=== PATIENT | female | born 1960 | race Caucasian/White ===

== ENCOUNTER → 2018-06-10 10:44 | Outpatient (CLI) | payer OTHER, SELFPAY ==
--- NOTE | 2018-06-10 11:15 | PET_ITS ---
EXAMINATION: FDG PET CT INDICATIONS: A 57-year-old female with reported history of lymphoma presenting for apparent initial staging examination. COMPARISON EXAMINATION: CT of the abdomen and pelvis report dated 05/20/18, CT of the chest report dated 05/17/18. INDEX LESION SIZE LUGANO SCORE SUV INTERPRETATION Left supraclavicular region (n = 1) 12.8 mm x 28.4 mm (frame 236) 5 6.1 Fulfills quantitative criteria for viable neoplasm TECHNIQUE: Following the intravenous administration of 15.8 mCi of F-18 deoxyglucose via the left antecubital fossa, multiplanar image acquisitions of the neck, chest, abdomen and pelvis to level of mid thigh, obtained at one hour post radiopharmaceutical administration contemporaneously interpreted with the current CT of the neck, chest, abdomen and pelvis to level of mid thigh, dated 06/10/[address] of the abdomen and pelvis report dated 05/20/18, CT of the chest report dated 05/17/18 reveal: SERUM GLUCOSE LEVEL: 96 mg/dl. HEIGHT: 60 inches. WEIGHT: 180 lbs. FINDINGS: 1. Asymmetric increased FDG concentration is defined in the left supraclavicular region. The calculated maximum standard uptake value is 6.1. The Lugano-Deauville score is 5, if applicable. The maximal axial diameter of the corresponding hypermetabolic soft tissue density on review of CT of the chest dated 06/10/18 is 12.8 mm (transverse) x 28.4 mm (AP). 2. Normal physiologic distribution of the radiopharmaceutical is apparent in the hepatic (4.7) and splenic parenchyma, both renal units, bladder and visualized intestinal tract. There is uniform distribution of the radiopharmaceutical concentration defined in the visualized cerebellar hemispheres and cerebral cortical structures.? Diffuse intestinal tract activity is noted throughout all four quadrants of the abdominal-pelvic retroperitoneum, mesentery consistent with normal physiologic distribution of the radiopharmaceutical. Pertinent CT findings are as follows. CHEST: Surgical clips are identified in the right axillary region. Right and visualized left axillary soft tissue densities, the majority of which demonstrate fatty hilus formation are non-glucose avid. There are no parenchymal densities-nodules defined in the right and left hemithorax demonstrating discernible, quantitatively significant increased glucose metabolism. ABDOMEN AND PELVIS: Bilateral subcentimeter inguinal soft tissue densities are ametabolic. Postsurgical changes are defined in the lower pelvis with apparent absence of the uterus commensurate with previous hysterectomy. Calcified granuloma formation is noted within the splenic parenchyma. Subcentimeter retroperitoneal soft tissue reveals no evidence of increased glucose metabolism. SKELETAL: Degenerative changes defined in the cervical, thoracic and lumbar spine demonstrate no evidence for glucose hypermetabolism. PET/PET/CT Tumor Base -Thigh Init IMPRESSION: 1. ABNORMAL EXAMINATION INDICATIVE OF MALIGNANT-VIABLE NEOPLASM. 2. Asymmetric enhanced FDG uptake noted in the left supraclavicular region fulfills quantitative criteria for viable neoplasm. Electronic Signature Konstantin Caceres D.O. Electronically Signed: Konstantin Caceres DO at 23:42 EDT Tel , Service support ,
== END ==
PROVIDERS: Family Provider Internal Medicine; PCP Internal Medicine; Referring Provider Internal Medicine Hematology & Oncology; Visit Provider Internal Medicine Hematology & Oncology
DX: C85.99 Non-Hodgkin lymphoma, unspecified, extranodal and solid organ sites (principal)
CPT/HCPCS: 78815; A9552

== ENCOUNTER 2021-07-14 18:22 | Emergency (ER) | payer BC, SELFPAY ==
[2021-07-14 18:24] VITALS: BP 131/87; PULSE 134; RESP 18; TEMP 35.6; O2SAT 96; BMI 35.2
[2021-07-14 18:38] VITALS: PULSE 103; RESP 18; O2SAT 96
--- NOTE | 2021-07-14 19:34 | EDS_ITS ---
HPI History of Present Illness Chief Complaint: Shortness of Breath Informant: patient Onset/Context/Timing Onset: Days (3) Timing: Continuous Quality: Positive for Dyspnea on exertion Worsened by: Exertion Relieved by: - (Sleep) Associated Symptoms cough, rhinorrhea, ear pain, sore throat, subjective, chills, sweats and green sputum Chest Pain: Positive for None Narrative Narrative: Patient presents with cough, shortness of breath, and headache that has been getting worse over the last 3 days. Patient states it began rather suddenly. Patient states her breathing is worse with any exertion. Patient states it is better whenever she sleeps. Patient states she is coughing up some green sputum. Patient admits to some sweats and chills but did not take her temperature. Patient admits to some rhinorrhea, sore throat, bilateral ear pain. Patient denies any chest pain. Patient does work in an extended care facility. [facility] Medical History (Updated 07/14/21 @ 21:[address] Raymon Rossi DO) Asthma Fibromyalgia Hx of supraventricular tachycardia Non-Hodgkin's lymphoma Osteoarthritis Restless leg syndrome Home Medications dicyclomine 20 mg PO TIDAC PRN #10 capsule 03/22/16 [Rx Last Taken Unknown] ondansetron 4 mg PO Q8H PRN PRN #10 tab 03/22/16 [Rx Last Taken Unknown] Allergy/AdvReac Type Severity Reaction Status Date / Time cephalexin [From Keflex] AdvReac Nausea/Vom/ Verified 07/14/21 18:24 Diarrhea Surgical History (Updated 07/14/21 @ 19:[address] Raymon Rossi DO) H/O section Social History Smoking Status: Never smoker ROS ROS ED Constitutional Constitutional ED: Reports chills and sweats; Denies fever(s) Eyes Eyes: Reports blurry vision; Denies diplopia ENT ENT ED: Reports ear pain bilateral, rhinorrhea and sore throat Cardiovascular Cardiovascular: Reports palpitations; Denies chest pain Respiratory/Chest Respiratory/Chest: Reports cough and dyspnea Gastrointestinal Gastrointestinal: Reports nausea and vomiting Genitourinary Genitourinary ED: Denies dysuria or hematuria Musculoskeletal Musculoskeletal: Reports neck pain; Denies back pain Integumentary Denies abscess or rash Neurologic Neurologic: Reports headache(s); Denies weakness Allergic/Immunologic Allergic/Immunologic ED: Denies mouth swelling or urticaria EXAM Physical Exam Const Vital Signs: 07/14/21 18:24 07/14/21 18:38 07/14/21 20:05 Temperature 96.1 F L Temperature Source Temporal Pulse Rate 134 H 103 H 110 H Respiratory Rate 18 18 18 Blood Pressure 131/87 H Blood Pressure Mean 101 Pulse Ox 96 96 Oxygen Delivery Method Room Air Room Air 07/14/21 21:17 Temperature Temperature Source Pulse Rate 103 H Respiratory Rate 16 Blood Pressure 128/73 H Blood Pressure Mean 91 Pulse Ox 94 Oxygen Delivery Method Room Air Positive well nourished and well developed General Appearance ED: well developed and NAD HEENT Reports moist mucous membranes Neck supple and no JVD Resp normal respiratory effort and clear to auscultation bilaterally Cardio regular rate, regular rhythm and no murmurs GI normal to inspection, nondistended, normoactive bowel sounds and non-tender Palpation: soft Extremity normal to inspection General Extremety ED: Negative for edema or tenderness General Extremity: Negative for edema Neuro oriented x3, CN's II-XII intact bilaterally and no sensory deficits noted Sensorium / Orientation: alert Motor Exam: strength 5/5 throughout Psych mental status grossly normal Skin no rashes or lesions noted MDM MDM MDM Narrative Medical decision making narrative: Patient was given IV fluids, morphine, and Zofran. Patient was given a DuoNeb aerosol. Portable 1 view chest x-ray was obtained. On my interpretation, lung chandler show bibasilar atelectasis with poor inspiratory effort. There is normal cardiac silhouette. Bony thorax is normal. There is no acute process noted. Radiologist also interpreted the x- ray and agrees. CBC was within normal limits. Comprehensive metabolic profile was essentially within normal limits. COVID-19 rapid antigen was obtained and was positive. Influenza A and influenza B swabs were obtained and were negative. Patient is feeling better on reevaluation. Patient was advised of her findings. Patient was instructed to wear a mask at all times. Patient was instructed to follow-up with her primary care physician in 5 to 7 days. Patient was instructed to take Tylenol or ibuprofen as needed for any aches or fevers. Patient understood and was agreeable with the plan. All questions were answered. Lab Data Attestation: I reviewed the patient's lab results. Labs: Laboratory Results - last 24 hr 07/14/21 07/14/21 19:50 19:50 WBC 5.3 RBC 5.14 Hgb 15.3 H Hct 45.8 MCV 89.1 MCH 29.8 MCHC 33.4 RDW Std Deviation 41.1 RDW Coeff of Marianne 12.6 Plt Count 173 MPV 10.1 Immature Gran % (Auto) 0.400 Neut % (Auto) 67.2 Lymph % (Auto) 20.2 Henry % (Auto) 11.4 H Eos % (Auto) 0.2 Baso % (Auto) 0.6 Absolute Neuts (auto) 3.6 Absolute Lymphs (auto) 1.08 Nucleated RBC % 0 Differential Comment SCANNED Sodium 139 Potassium 3.5 Chloride 104 Carbon Dioxide 26.0 Anion Gap 9 BUN 16 Creatinine 0.79 Estim Creat Clear Calc 55.08 Est GFR (MDRD) Af Amer 96 Est GFR (MDRD) Non-Af 79 BUN/Creatinine Ratio 20.3 H Glucose 102 Calcium 9.7 Total Bilirubin 0.90 AST 16 ALT 22 Alkaline Phosphatase 122 H Total Protein 8.4 H Albumin 3.6 Globulin 4.8 H Albumin/Globulin Ratio 0.8 L Radiography Chest X-Ray - ED: 1 View, Read by ED Physician, Read by Radiologist and No Acute Disease Diagnostic Testing: Clinical Impression(s) from Imaging Studies Chest X-Ray 07/14/21 20:05 IMPRESSION: Diminished inspiratory effort and minimal discoid atelectasis or scarring at both lung bases. No gross infiltration. Electronically Signed: Rashawn Madrigal MD at 20:39 EDT Reading Location ID and State: [address] [place] [address] , Service support , Discharge Plan Triage Chief Complaint: Shortness of Breath Other Complaint: Cough Fatigue Sore Throat ED Provider: Raymon Rossi Dx/Rx/DC Orders Clinical Impression: COVID-19 Instructions: Coronavirus Disease 2019 (COVID-19): Caring for Yourself or Ot hers Prescriptions: No Action ondansetron 4 MG tablet 4 mg PO Q8H PRN PRN (Reason: Nausea) Qty: 10 RF: 0 dicyclomine 10 MG capsule 20 mg PO TIDAC PRN (Reason: Gi Cramping) Qty: 10 RF: 0 Primary Care Provider: Omar Khan Referrals: Omar Khan MD [Primary Care Provider] - 5-7 Days Disposition Disposition: Home, Self Care
[2021-07-14] MEDS: 0.9% Normal Saline 1,000 ML 1000 ML IV (19:50)
[2021-07-14] MEDS: Ondansetron 4 MG/2 ML Vial IV (19:53)
[2021-07-14] MEDS: Morphine 4 MG/ML Syringe IV (19:53)
[2021-07-14] MEDS: Ipratropium/Albuterol Sulfate 3 ML AMPUL.NEB INHALATION (19:56)
[2021-07-14 20:05] VITALS: PULSE 110; RESP 18
--- NOTE | 2021-07-14 20:05 | RAD_ITS ---
STUDY: X-RAY CHEST REASON FOR EXAM: Female, 60 years old. Cough TECHNIQUE: AP portable COMPARISON: None. FINDINGS: Less than optimal inspiratory effort is seen. There is minimal discoid atelectasis or scarring at both lung bases. There is no demonstrated pleural abnormality. Normal size heart. Normal mediastinum and gabriela. Normal visualized pulmonary arteries. Normal visualized aortic arch and descending thoracic aorta. Normal visualized thoracic spine. Normal visualized ribs, clavicles, and shoulders. There is no demonstrated abnormality of the visualized soft tissue structures of the upper abdomen. RAD/Chest 1 View (Portable) IMPRESSION: Diminished inspiratory effort and minimal discoid atelectasis or scarring at both lung bases. No gross infiltration. Electronically Signed: Rashawn Madrigal MD at 20:39 EDT ,
[2021-07-14 20:08] LABS: Absolute Lymphocyte Count 1.08 X10^3/uL (0.83-4.51); Absolute Neutrophil Count 3.6 X10^3/uL (2.0-7.7); Basophil# 0.03 X10^3/uL; Basophil% 0.6 % (0-1); Eosinophil# 0.01 X10^3/uL; Eosinophils% 0.2 % (0-5); Hematocrit 45.8 % (37-47); Hemoglobin 15.3 g/dL (12.0-15.0); Lymphocyte # 1.08 X10^3/ul (0.83-4.51); Lymphocyte % 20.2 % (19-41); Mean Corp Hgb Conc 33.4 g/dL (32-36); Mean Corpuscular Hgb 29.8 pg (27.0-32.0); Mean Corpuscular Volume 89.1 fL (81-99); Mean Platelet Vol. 10.1 fl (6.2-12.0); Monocyte# 0.61 X10^3/uL; Monocyte% 11.4 % (0-10); NRBC Flagged by Analyzer 0 % (0-5); Neutrophil # 3.59 X10^3/uL (2.7-7.7); Neutrophil % 67.2 % (47-70); POSITIVE COUNT YES; Platelet Count 173 K/mm3 (150-450); RBC Distribution Width CV 12.6 % (11.6-14.6); RBC Distribution Width SD 41.1 fl (35.1-43.9); Red Blood Count 5.14 M/mm3 (4.2-5.4); White Blood Count 5.3 K/mm3 (4.4-11.0)
[2021-07-14 20:11] LABS: Differential Indicated SCAN CRITERIA MET
[2021-07-14 20:40] LABS: ALB/GLOB Ratio 0.8 RATIO (0.9-2.4); AST(SGOT) 16 U/L (15-37); Alanine Aminotransfer ALT/SGPT 22 U/L (13-56); Albumin, Serum 3.6 g/dL (3.2-5.0); Alkaline Phosphatase 122 U/L (45-117); Anion Gap 9 (5-15); BUN 16 mg/dL (7-18); BUN/Creat Ratio 20.3 RATIO (10-20); Calcium,Total 9.7 mg/dL (8.5-10.1); Chloride 104 mmol/L (98-107); Creatinine, Serum 0.79 mg/dL (0.55-1.02); EST Glomerular Filtration Rate 79 mL/min (>60); Est Glom Filt Rate - Afr Amer 96 mL/min (>60); Estimated Creatinine Clearance 55.08 ml/min; Globulin 4.8 g/dL (2.2-4.2); Glucose 102 mg/dL (74-106); Potassium 3.5 mmol/L (3.5-5.1); Protein, Total 8.4 g/dL (6.4-8.2); Sodium Level 139 mmol/L (136-145)
[2021-07-14 20:46] LABS: Differential Comment SCANNED
[2021-07-14 21:17] VITALS: BP 128/73; PULSE 103; RESP 16; O2SAT 94
== END 2021-07-14 21:42 | disposition home or self-care (01) ==
PROVIDERS: Emergency Provider Emergency Medicine; PCP Internal Medicine; Visit Provider Emergency Medicine
DX: U07.1 COVID-19 (principal); C85.90 Non-Hodgkin lymphoma, unspecified, unspecified site; M79.7 Fibromyalgia; M19.90 Unspecified osteoarthritis, unspecified site; G25.81 Restless legs syndrome
CPT/HCPCS: 71045; 80053; 85025; 87428; 94640; 96361; 96374; 96375; 99282; J7030; J2405

== ENCOUNTER 2024-12-03 20:45 | Emergency (ER) | payer BC, SELFPAY ==
[2024-12-03 20:46] VITALS: BP 160/89; PULSE 88; RESP 18; TEMP 36.1; O2SAT 97; BMI 37.8
[2024-12-03] MEDS: Lidocaine 1% (20 ml mdv) 20 ML Vial 3 ML INFILT (22:01)
[2024-12-03 22:38] VITALS: BP 148/80; PULSE 82; RESP 16; TEMP 36.6; O2SAT 98
== END 2024-12-03 22:39 | disposition home or self-care (01) ==
PROVIDERS: Emergency Provider Emergency Medicine; PCP Internal Medicine; Visit Provider Emergency Medicine
DX: S20.369A Insect bite (nonvenomous) of unspecified front wall of thorax, initial encounter (principal); J45.909 Unspecified asthma, uncomplicated; W57.XXXA Bitten or stung by nonvenomous insect and other nonvenomous arthropods, initial encounter
CPT/HCPCS: 99282